=== PATIENT | male | born 1980 | race African-American/Black ===

== ENCOUNTER 2017-08-08 07:44 | Emergency (ER) | payer SELFPAY ==
--- NOTE | 2017-08-08 09:07 | RAD ---
4 VIEWS LEFT KNEE: Date: 08/08/17 INDICATION: Left knee injury while playing basketball. FINDINGS: There is a mildly depressed posterior and lateral tibial plateau fracture with estimated impression o f the posterior and lateral aspect of the lateral tibial plateau surface of approximately 6.4 mm. The re is mild osteoarthrosis of the left knee, affecting all major compartments, but most severely affec ting the patellofemoral and medial femorotibial joint compartment. There is joint capsular distention . IMPRESSION: 1. Mild to moderately depressed left lateral tibial plateau fracture. 2. Mild to moderate osteoarthrosis of the left knee. The patient would benefit from a CT examination of the left knee to evaluate extent of articular surf rené injury of the lateral tibial plateau. POS: TOYIN
== END 2017-08-08 08:45 | disposition home or self-care (01) ==
LOC: BURERS 07:44
DX: S83.92XA Sprain of unspecified site of left knee, initial encounter (principal); F43.10 Post-traumatic stress disorder, unspecified; X50.1XXA Overexertion from prolonged static or awkward postures, initial encounter; Y93.67 Activity, basketball; Y92.39 Other specified sports and athletic area as the place of occurrence of the external cause; Y99.8 Other external cause status